=== PATIENT | female | born 1940 | race Caucasian/White ===

== ENCOUNTER 2018-11-16 20:03 | Inpatient (IN) | payer OTHER ==
[~2018-11-16] VITALS: Ht 157.5 cm; Wt 42.2 kg
[2018-11-16] MEDS ORDERED: SYNTHROID50 MCG PO (20:34)
[2018-11-16] MEDS ORDERED: PRILOSEC OTC20 MG PO (20:35)
[2018-11-16] MEDS ORDERED: MULTI VITAMIN1 EACH PO (20:37)
[2018-11-16] MEDS ORDERED: CALCIUM 500 +1 EAC5 PO (20:38)
[2018-11-16] MEDS ORDERED: VITAMIN D2000 UNIT PO (20:38)
[2018-11-16 20:45] VITALS: BP 156/59
[2018-11-17 02:16] LABS: URINE BILIRUBIN NEGATIVE (Negative); URINE BLOOD NEGATIVE (Negative); URINE CLARITY CLEAR; URINE COLOR YELLOW; URINE GLUCOSE-RANDOM* NEGATIVE (Negative); URINE KETONES 1+ (Negative); URINE LEUKOCYTES-REFLEX NEGATIVE (Negative); URINE NITRITE-REFLEX NEGATIVE (Negative); URINE PROTEIN (DIPSTICK) 1+ (Negative); URINE SPECIFIC GRAVITY 1.025 (1.005-1.035); URINE UROBILINOGEN 0.2 E.U./dl (0.2-1.0)
[2018-11-17 02:51] LABS: SQUAMOUS 0-3 Few /LPF (0-3); WBC CLUMPS Few (None Seen)
[2018-11-17 02:52] LABS: BACTERIA-REFLEX 1-9 Few /HPF (None Seen); CELLULAR CASTS 0-3 Few /LPF (None Seen); CRYSTALS None Seen /LPF (None Seen); HYALINE CASTS 0-3 Few /LPF (None Seen); URINE RBC 0-2 Rare /HPF (0-2); URINE WBC-REFLEX 6-15 Few /HPF (0-5)
--- NOTE | 2018-11-17 03:05 | NUR ---
PT ARRIVED VIA EMS FROM [facility] APPROX 1950, ADMISSION AND ASSESSMENT COMPLETED, CONSENT FORMS SIGNED. PT ARRIVED WITH NG TUBE IN LEFT NARE, PATENT, CONNECTED TO SUCTION AND IMMEDIATELY PULLING DARK YELLOW LIQUID AND NOTABLE AIR OUT. PT IS A&Ox4, SOFT-SPOKEN, UP WITH MINIMAL ASSIST, CONTINENT. C/O GENERALIZED ABD PAIN, ABD IS DISTENDED AND FIRM WITH HYPOACTIVE BOWEL SOUNDS, MILD NAUSEA. LAST FORMED BM ON WEDNESDAY, EPISODE OF DIARRHEA Wed. DENIES SOB. ALSO C/O CRAMPING/RESTLESS LEG PAIN RLE CHRONIC NECK/SHOULDER PAIN; PT REPORTS RELIEF WITH A MENTHOL RUB. HISTORY OF UNTREATED AFIB AND RIGHT MASTECTOMY. SKIN INTACT. IV FLUIDS STARTED. CONSULTS ORDERED FOR GI AND SURGERY. NO OTHER CONCERNS, WILL CONTINUE TO MONITOR.
[2018-11-17 04:15] VITALS: BP 133/59
[2018-11-17 05:09] LABS: HEMATOCRIT 42.8 % (37.0-47.0); HEMOGLOBIN 14.5 gm/dL (12.0-15.0); MCH 33.2 pg (26.0-34.0); MCHC 33.8 g/dL (28.0-37.0); MCV 98.4 fL (80.0-100.0); RBC 4.35 mil/uL (4.20-5.00); RDW 13.5 % (10.5-14.5); WBC 7.8 thou/uL (4.0-11.0)
[2018-11-17 05:25] LABS: CALCIUM 9.3 mg/dL (8.5-10.1); CREATININE 0.7 mg/dL (0.6-1.0); POTASSIUM 3.6 mmol/L (3.5-5.1)
[2018-11-17 07:50] VITALS: BP 111/62
--- NOTE | 2018-11-17 09:21 | H ---
[facility] [address] [place] [address] HISTORY AND PHYSICAL Name: HERBIE VILLALTA Room #: 424-P ADM IN M.R.#: [id number] Admission: 11/16/18 ������������������ Attend Phys: Digna Farfan Discharge: ������������������ Date of : 42 Report #: [id number] THIS REPORT FOR: //name// CC: FAM physician/PCP Digna Farfan DATE OF SERVICE: 11/16/2018 ATTENDING PHYSICIAN: Dr. Short. PRIMARY CARE PHYSICIAN: Dr. Preet Silva. CHIEF COMPLAINT: Abdominal pain, nausea, vomiting. HISTORY OF PRESENT ILLNESS: The patient is a 78-year-old female who was sent by [facility] due to small-bowel obstruction. She had presented there with a few days of generalized abdominal pain, which worsened earlier today, followed by few episodes of vomiting. She did have 2 loose stools today. She does have extensive history of abdominal surgeries and prior small-bowel obstruction 1 year ago at [facility] which resolved without any surgical intervention. She did have an NG tube placed at [facility] and was sent here since there was no surgeon available there. She states her pain has improved somewhat with the NG tube. She denies any fevers or chills. PAST MEDICAL HISTORY: GI bleed, hypothyroidism, breast cancer, atrial fibrillation. 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 ALLERGIES: ASPIRIN causes ULCERS and GI BLEEDING. HOME MEDICATIONS: Calcium and vitamin D 1 tab daily, omeprazole 20 mg daily p.r.n., levothyroxine 50 mcg daily, vitamin D3 2000 units daily, multivitamin daily. FAMILY HISTORY: Her father had hypertension. SOCIAL HISTORY: The patient denies any alcohol, tobacco or drug use. She lives at home with her spouse. She ambulates independently without any assistive devices. The [facility] records did say that she was a do not resuscitate. When asked about her code status, the patient states "I am not sure, you will have to ask my spouse and daughter who are my DPOAs" REVIEW OF SYSTEMS: Twelve-point review of systems was reviewed with the patient, otherwise negative unless stated in the HPI. [facility] [address] [place] [address] HISTORY AND PHYSICAL Name: HERBIE VILLALTA Room #: 424-P [facility] IN [facility].#: [id number] Admission: 11/16/18 ������������������ Attend Phys: Digna Farfan Discharge: ������������������ Date of : 42 Report #: [id number] PHYSICAL EXAMINATION: GENERAL: The patient is an alert female in no acute distress. VITAL SIGNS: Temperature 36.6, heart rate 94, respirations 18, blood pressure 156/59, oxygen 98% on room air. HEENT: PERRLA. Sclerae nonicteric. Oral mucosa is pink and moist. NECK: Supple, no JVD noted. CARDIAC: Heart rate is irregular but no murmurs, rubs or gallops. RESPIRATORY: Breath sounds are clear bilateral upper lobes, she is diminished on the left side. Breathing is nonlabored. ABDOMEN: Rounded more significantly on the lower portion, she has few rare bowel sounds. She is mildly tender across her lower abdomen, NG tube is draining light green thick drainage. VASCULAR: No edema noted. Pedal pulses are 2+. NEUROLOGIC: The patient is alert and oriented x 3. Speech is clear. She is moving all extremities equally. No focal neuro deficits noted. LABORATORY DATA AND DIAGNOSTICS: WBC 9.46, hemoglobin 15.3, platelets 246. Sodium 130, potassium 3.7, BUN 18, creatinine 0.8, glucose 115. LFTs are within normal limits. Lipase is 86. Bilirubin is normal, lactate 0.7. UA showed 1+ ketones, 2+ protein, trace leukocyte esterase, 4-8 wbc's, 1+ bacteria and positive squamous cells. CT of the abdomen showed findings suggesting a distal mechanical small-bowel obstruction very close to the ileocecal valve. There is also diffuse fluid present throughout the bowel loops such that abdominal plain films may not adequately demonstrate the obstruction. There is also a mild amount of ascites throughout the abdomen. The liver demonstrates mild lobulation, suggesting cirrhosis. There is moderate dilatation of the intrahepatic and extrahepatic biliary tree. The distal common bile duct is very tortuous and contains multiple calcified stones. The possibility of an acute distal common bile duct obstruction should be considered. There is also mild prominence of the pancreatic duct. 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 The contralateral left kidney demonstrates prominence in a 78-year-old female suggesting both initial hypertrophy and atrophy of age. ASSESSMENT AND PLAN: 1. Small-bowel obstruction. The patient will be kept n.p.o. with IV fluids, continue with pain and nausea control, to keep NG tube to low intermittent suction and await surgery evaluation. 2. Possible choledocholithiasis. This was noted on CT. If there is a stone, it does not appear to be obstructing as her liver enzymes and bilirubin are normal. We will consult GI for further assessment and she may need an MRCP to further evaluate. 3. Hypothyroidism. Check TSH level. Continue Synthroid. 4. Possible urinary tract infection. Urine may have been contaminated. We will repeat UA at this time, hold off on antibiotics until results are back on repeat urine. [address] [address] HISTORY AND PHYSICAL Name: HERBIE VILLALTA Room #: 424-P ADM IN M.R.#: [id number] Admission: 11/16/18 ������������������ Attend Phys: Digna Farfan Discharge: ������������������ Date of : 42 Report #: [id number] 5. Deep venous thrombosis prophylaxis, place sequential compression devices. We will continue to follow the patient closely throughout the hospitalization and make changes based on clinical status. ��������������������������������������������� <ELECTRONICALLY SIGNED> ���������������������������������������� By: GAURANG Torres ��������������������������������������������� 11/17/18 0921 0730 0839 GAURANG Torres /nt
--- NOTE | 2018-11-17 10:10 | NUR ---
Nutrition: Pt admitted for SBO, possible nonobstructing choledocholithiasis. Seen for BMI of 17=underweight. Currently NPO. Before admit appetite good with good intake, three meals a day. Current weight 92 lbs, UBW 85-87. GI consult pending for possible CBD stones, surgical consultation also pending. Will monitor for timely diet advance. Otherwise low nutrition risk.
--- NOTE | 2018-11-17 12:41 | NUR ---
ASSESSMENT-PT LIVES AT HOME WITH HER WHO WAS RECENTLY HOSPITALIZED BUT IS NOT AT HOME WITH A HH SERVICES FOLLOWING HIM. HE DRIVES, SHE DOES NOT. PT WALKS ON HER OWN AND DOES HER OWN ADLS. SHE HAS 2 CHILDREN AND HE HAS 1 CHILD. PT HAS NOT HAD ANY HH SERVICES. SHE DOES THE COOKING, CLEANING AND LAUNDRY. THEY Have BEEN ALMOST 41 YRS. PT VOICES NO CONCERNS RELATED TO DC. FOLLOWING TO ASSIST WITH DC PLANNING.
[2018-11-17 16:54] VITALS: BP 130/61
[2018-11-17 18:50] VITALS: BP 113/66
--- NOTE | 2018-11-17 19:32 | NUR ---
PT PROGRESSING SOME. ABD PAIN MUCH BETTER. STILL NO FLATUS. ABD SOFTER BUT DISTENDED. NG TO MARTIR. SURGICAL CONSULT W/ DR. LAWTON.
--- NOTE | 2018-11-18 01:56 | NUR ---
ASSUMED CARE AT 1900, ASSESSMENT COMPLETED. PT REPORTS ABD PAIN AND NAUSEA GREATLY IMPROVED, NO PRN MEDS GIVEN SO FAR THIS SHIFT. ABD STILL DISTENDED AND FIRM. GIVEN GLYCERIN SUPPOSITORY, CAUSING PT TO PASS GAS AND EVENTUALLY HAVE SMALL/MEDIUM AMOUNTS OF LOOSE YELLOW/BROWN STOOL. NG TUBE HAS SMALL AMOUNT OF THIN, DARK BROWN LIQUID OUTPUT OVERNIGHT. PT CALLS APPROPRIATELY FOR ASSISTANCE TO BSC. UTILIZING HEATING PAD FOR CHRONIC NECK/SHOULDER PAIN. IV FLUIDS INFUSING. NO OTHER CONCERNS, WILL CONTINUE TO MONITOR.
[2018-11-18 04:50] VITALS: BP 119/55
[2018-11-18 05:17] LABS: ALBUMIN 2.7 g/dL (3.4-5.0); CALCIUM 7.9 mg/dL (8.5-10.1); CREATININE 0.9 mg/dL (0.6-1.0); POTASSIUM 3.7 mmol/L (3.5-5.1); TOTAL BILIRUBIN 0.4 mg/dL (<0.1-1.0); TOTAL PROTEIN 5.2 g/dL (6.4-8.2)
[2018-11-18 05:54] LABS: MAGNESIUM 1.8 mg/dL (1.8-2.4)
[2018-11-18 06:09] LABS: PHOSPHORUS 3.4 mg/dL (2.5-4.9)
[2018-11-18 07:38] VITALS: BP 126/57
[2018-11-18 15:20] VITALS: BP 133/66
--- NOTE | 2018-11-18 19:18 | NUR ---
ASSUMED CARE OF PT AT 0700. ASSESSMENT CHARTED. A&O,X4. DENIES ABD PAIN AND NAUSEA. NGT IN PLACE LEFT NARE, LIS, BROWN OUTPUT NOTED. NPO. C/O CHRONIC NECK AND BACK PAIN, LIDOCAINE PATCH PLACED THIS AM AND HEATING PACK TO SITE. PT STANDBY ASSIST TO BATHROOM. SKIN INTACT. NEW ORDERS TO CLAMP NGT ~ 100ML BROWN OUTPUT NOTED. ICE CHIPS PROVIDED. ASKED DR. JIM TO ADVANCE DIET, MAINTAIN NPO WITH ICE CHIPS AT THIS TIME. NO OTHER CHANGE IN STATUS.
[2018-11-18 20:21] VITALS: BP 135/63
--- NOTE | 2018-11-19 01:18 | NUR ---
ASSUMED PT CARE 1899. PT ALERT AND ORIENTED. REASSESSMENT COMPLETE. VSS. IV DRESSING C/S/I, NO SIGNS OF INFILTRATION. BLE EDEMA. PT DENIES N/V, REPORTS PAIN IN SHOULDERS/BACK, DENIES ABD PAIN, SEE EMAR. NG TUBE IN PLACE AND CLAMPED. PT CALL LIGHT WITHIN REACH, WILL CONTINUE POC UNTIL EOS.
[2018-11-19 03:15] VITALS: BP 129/49
[2018-11-19 04:45] LABS: CALCIUM 6.7 mg/dL (8.5-10.1); CREATININE 0.7 mg/dL (0.6-1.0); MAGNESIUM 1.4 mg/dL (1.8-2.4); POTASSIUM 3.2 mmol/L (3.5-5.1)
[2018-11-19 08:24] VITALS: BP 133/57
[2018-11-19 16:05] VITALS: BP 139/62
--- NOTE | 2018-11-19 17:33 | NUR ---
Assessment completed.vss.Pt in and out of bed to bathroom with sba.Pt tolerated clear liq.Dr Tadeo here,order noted.Received call from mri that procedure won't be possible today but wednesday.Dr Tadeo notified.Dr Garcia later saw pt this afternoon and wanted ng pulled if no nausea.Will continue to monitor.
[2018-11-19 19:29] VITALS: BP 141/61
--- NOTE | 2018-11-20 02:40 | NUR ---
ASSSUMED PT CARE 1899. PT ALERT AND ORIENTED. RESSESSMENT COMPLETE. VSS. DRESSING C/D/I, NO SIGNS OF INFILTRATION. PT DENIES N/V, PT DENIES PAIN. PT CALL LIGHT WITHIN REACH. WILL CONTINUE POC UNTIL EOS.
[2018-11-20 03:53] VITALS: BP 144/61
[2018-11-20 07:27] VITALS: BP 137/61
[2018-11-20] MEDS ORDERED: COLACE100 MG PO (09:30)
[2018-11-20 09:37] VITALS: BP 137/61
--- NOTE | 2018-11-20 10:13 | NUR ---
DIS PT IS FOR DC TODAY, PT ON REGULAR DIET, TOLERATING WELL. PT HAD A MEDIUM BM THIS AM. IV DC'D. DC PACKET AND MEDSCRIPTS PROVIDED.
== END 2018-11-20 11:13 | disposition home or self-care (01) | DRG 389 ==
LOC: 4E 20:03
PROVIDERS: Nurse Practitioner; Nurse Practitioner Acute Care; Nurse Practitioner Family; ADMIT Hospitalist
PROC: 0D9670Z Drainage of Stomach with Drainage Device, Via Natural or Artificial Opening (ICD-10-PCS; principal; 2018-11-17)
DX: K56.609 Unspecified intestinal obstruction, unspecified as to partial versus complete obstruction (principal); N39.0 Urinary tract infection, site not specified; E46 Unspecified protein-calorie malnutrition; Z68.1 Body mass index [BMI] 19.9 or less, adult; K80.50 Calculus of bile duct without cholangitis or cholecystitis without obstruction; I48.91 Unspecified atrial fibrillation; E03.9 Hypothyroidism, unspecified; I25.10 Atherosclerotic heart disease of native coronary artery without angina pectoris; M81.0 Age-related osteoporosis without current pathological fracture; K21.9 Gastro-esophageal reflux disease without esophagitis; M19.90 Unspecified osteoarthritis, unspecified site; Z98.42 Cataract extraction status, left eye; Z98.41 Cataract extraction status, right eye; Z87.81 Personal history of (healed) traumatic fracture; Z85.3 Personal history of malignant neoplasm of breast; Z90.49 Acquired absence of other specified parts of digestive tract; Z90.710 Acquired absence of both cervix and uterus; Z90.11 Acquired absence of right breast and nipple; Z90.5 Acquired absence of kidney; Z79.899 Other long term (current) drug therapy; Z88.5 Allergy status to narcotic agent; Z88.6 Allergy status to analgesic agent; Z82.49 Family history of ischemic heart disease and other diseases of the circulatory system
CPT/HCPCS: 10783

== ENCOUNTER 2018-11-22 16:58 | Inpatient (IN) | payer OTHER ==
[~2018-11-22 16:58] MED LIST: CALCIUM 500 +1 EAC5 PO; COLACE100 MG PO; MULTI VITAMIN1 EACH PO; PRILOSEC OTC20 MG PO; SYNTHROID50 MCG PO; VITAMIN D2000 UNIT PO
--- NOTE | 2018-11-22 18:25 | NUR ---
PT ORIENTED TO ROOM AND UNIT. BED LOW AND LOCKED, SIDE RAILS UPX3, CALL LIGHT IN REACH. WILL CONTINUE TO ASSESS.
[2018-11-22 18:50] LABS: HEMATOCRIT 41.6 % (37.0-47.0); HEMOGLOBIN 13.8 gm/dL (12.0-15.0); MCH 32.9 pg (26.0-34.0); MCHC 33.2 g/dL (28.0-37.0); MCV 98.9 fL (80.0-100.0); RBC 4.21 mil/uL (4.20-5.00); RDW 13.7 % (10.5-14.5); WBC 5.9 thou/uL (4.0-11.0)
[2018-11-22 19:06] LABS: ALBUMIN 3.8 g/dL (3.4-5.0); TOTAL PROTEIN 7.2 g/dL (6.4-8.2)
[2018-11-22 19:08] LABS: CHOLESTEROL 182 mg/dL (<200); HDL CHOLESTEROL 75 mg/dL (>40); LDL CHOLESTEROL 82 mg/dL (<100); TC:HDL 2.4 Ratio (Not establshd); TRIGLYCERIDE 125 mg/dL (<150); VLDL 25 mg/dL (<40)
[2018-11-22 19:11] LABS: SERUM ASSESSMENT Clear
[2018-11-22 19:55] VITALS: BP 103/55; BP 147/83
[2018-11-22 20:25] LABS: CALCIUM 10.4 mg/dL (8.5-10.1); CREATININE 0.8 mg/dL (0.6-1.0); MAGNESIUM 1.7 mg/dL (1.8-2.4); POTASSIUM 4.1 mmol/L (3.5-5.1)
[2018-11-23 00:37] VITALS: BP 131/75
[2018-11-23 04:26] LABS: HEMOGLOBIN 12.3 gm/dL (12.0-15.0); MCH 33.5 pg (26.0-34.0); MCHC 34.3 g/dL (28.0-37.0); MCV 97.8 fL (80.0-100.0); RBC 3.68 mil/uL (4.20-5.00); RDW 13.4 % (10.5-14.5); WBC 5.1 thou/uL (4.0-11.0)
--- NOTE | 2018-11-23 04:28 | NUR ---
ASSUMED PT CARE AT SHIFT CHANGE WITH NO SIGN OF DISTRESS NOTED IN PT. PT IS ALERT AND ORIENTED. SCHEDULED MEDS ADMINISTERED TO PT. PT TOLERATED PO INTAKE. PT IS STABLE THROUGH OUT THE NIGHT. ELECTROLYSIS NEEDLE OPERATOR TO VISIT WITH PT IN THE AM, DENIES ANY FURTHER NEEDS AT THIS TIME.
[2018-11-23 04:50] VITALS: BP 131/72
[2018-11-23 04:50] LABS: CALCIUM 9.3 mg/dL (8.5-10.1); CREATININE 0.7 mg/dL (0.6-1.0); MAGNESIUM 1.4 mg/dL (1.8-2.4); POTASSIUM 3.5 mmol/L (3.5-5.1); TROPONIN-I 0.17 ng/mL (<0.06)
[2018-11-23 08:00] VITALS: BP 127/65
--- NOTE | 2018-11-23 10:26 | NUR ---
P.T. EVAL DEFERRED AT THIS TIME PER PT REQUEST. PT AND PT'S RN REPORT PT IS UP AD DEIRDRE IN ROOM WITHOUT DIFFICULTY. PT OBSERVED PERFORMING TXS AND AMB IN ROOM. PROVIDED WITH SECOND GOWN PER PT REQUEST TO ALLOW PT TO AMBULATE IN HALLS WITH NURSING APPROVAL/SUPERVISION. PT AND PT'S FAMILY VERBALIZED NO QUESTIONS AND AWARE THAT RN CAN RE-CONSULT P.T. IF PT EXPERIENCES A CHANGE IN FUNCTIONAL MOBILITY LEVEL.
--- NOTE | 2018-11-23 11:49 | NUR ---
ORDER REC'D FOR OT EVAL. OT BRIEFLY ASSESSED FUNCTIONAL MOBILITY W/WALK TO BATHROOM AND TOILET TRANSFER TO LOW SEAT. PATIENT USED GRAB BAR AND DID NOT NEED ASSIST W/LOWERING TO SEAT OR RISING. PATIENT IS ABLE TO DEMO LOWER BODY DRESSING W/O ASSIST AND STATES THAT SHE IS INDEPENDENT AT HOME AND HERE, TAKING HERSELF TO THE BATHROOM W/O INCIDENT. FAMILY IS PRESENT AND AGREES THAT PATIENT IS SAFE AND INDEPENDENT AND DOES NOT REQUIRE SKILLED OT. WILL DISCHARGE FROM OT SERVICES AFTER THIS SCREENING.
[2018-11-23 12:14] VITALS: BP 112/64
--- NOTE | 2018-11-23 15:17 | 2DMMODE ---
[facility] [address] [place] [address] 2 D/M-MODE ECHOCARDIOGRAM Name: HERBIE VILLALTA Room #: 204-P ADM IN .R.#: [id number] ������������� Admission: 11/22/18 ������������� Attend Phys: Adam Dennison, Discharge: ��� ������������� ��� Date of : 42 Date of Service: 11/23/18 1517 �� Report #: [id number] �������� ��������������������������������������������[id number] THIS REPORT FOR: //name// APPROVED REPORT Study performed: 11/23/2018 08:41:39 EXAM: Comprehensive 2D, Doppler, and color-flow Echocardiogram Patient Location: Bedside Room #: 204 Status: routine BSA: 1.38 HR: 101 bpm BP: 131/72 mmHg Rhythm: Atrial Fibrillation Other Information Study Quality: Good Indications Atrial Fibrillation Dyspnea 2D Dimensions RVDd: 29.25 mm IVSd: 8.01 (7-11mm) LVOT Diam: 21.28 (18-24mm) LVDd: 47.76 mm PWd: 7.64 (7-11mm) Ascending Ao: 30.85 (22-36mm) LVDs: 39.98 (25-40mm) Aortic Root: 34.75 mm IVC: 10.00 mm Volumes Left Atrial Volume (Systole) Single Plane 4CH: 86.75 mL Single Plane 2CH: 70.25 mL LA ESV Index: 61.00 mL/m2 Aortic Valve AoV Peak Brian.: 1.37 m/s AO Peak Gr.: 7.56 mmHg LVOT Max P.79 mmHg LVOT Max V: 0.83 m/s FABY Vmax: 2.16 cm2 AI Vmax: 3.40 m/s AI [place]: 1.48 m/s2 AI PHT: 667.51 ms [facility] [address] [place] [address] 2 D/M-MODE ECHOCARDIOGRAM Name: HERBIE VILLALTA Room #: 204-P [facility] IN .R.#: [id number] ������������� Admission: 11/22/18 ������������� Attend Phys: Adam Dennison, Discharge: ��� ������������� ��� Date of : 42 Date of Service: 11/23/18 1517 �� Report #: [id number] �������� ��������������������������������������������[id number] Pulmonary Valve PV Peak Brian.: 1.02 m/s PV Peak Gr.: 4.20 mmHg Tricuspid Valve TR Peak Brian.: 2.76 m/s TR Peak Gr.: 30.44 mmHg PA Pressure: 35.00 mmHg Left Ventricle The left ventricle is normal size. There is normal left ventricular wall thickness. Left ventricular systolic function is mildly decreased. LVEF is 40-45%. This study is not technically sufficient to allow evaluation of the LV diastolic function due to atrial fibrillation. Right Ventricle The right ventricle is normal size. The right ventricular systolic function is normal. Atria Left atrium is dilated. Right atrium is dilated. Aortic Valve The aortic valve is normal in structure. Mild aortic regurgitation. There is no aortic valvular stenosis. Mitral Valve The mitral valve is normal in structure. Mild mitral regurgitation. No evidence of mitral valve stenosis. Tricuspid Valve The tricuspid valve is normal in structure. There is mild tricuspid regurgitation. Estimated PAP 35 mmHg. There is mild pulmonary hypertension. Pulmonic Valve The pulmonary valve is normal in structure. Mild pulmonic regurgitation. Great Vessels The aortic root is normal in size. IVC is normal in size and collapses >50% with inspiration. Pericardium Mildl pericardial effusion. [facility] [address] [place] [address] 2 D/M-MODE ECHOCARDIOGRAM Name: HERBIE VILLALTA Room #: 204-P [facility] IN M.R.#: [id number] ������������� Admission: 11/22/18 ������������� Attend Phys: Adam Dennison, Discharge: ��� ������������� ��� Date of : 42 Date of Service: 11/23/18 1517 �� Report #: [id number] �������� ��������������������������������������������[id number] <Conclusion> The left ventricle is normal size. Left ventricular systolic function is mildly decreased. LVEF is 40-45%. This study is not technically sufficient to allow evaluation of the LV diastolic function due to atrial fibrillation. The right ventricle is normal size. Left atrium is dilated. Right atrium is dilated. Mild aortic regurgitation. Mild mitral regurgitation. There is mild tricuspid regurgitation. Estimated PAP 35 mmHg. There is mild pulmonary hypertension. The aortic root is normal in size. Mildl pericardial effusion. ��������������������������������������������� <ELECTRONICALLY SIGNED> ���������������������������������������� By: Juan C Berg MD, FAC ��������������������������������������������� 11/23/18 1517 151 16 Juan C Berg MD, FACC /INF
[2018-11-23 16:00] VITALS: BP 100/51
--- NOTE | 2018-11-23 16:34 | NUR ---
ASSUMED CARE AT 0700. PT HAS CHEST XRAY AND ECHO THIS AM. PT WAS EVAULATED BY P.T AND O.T THIS AFTERNOON AND IT WAS DETERMINED PT DID NOT REQUIRE SERVICES FROM EITHER P.T OR O.T. PT HAS BEEN WALKING HALLS THIS SHIFT. PT UP AD DEIRDRE AND STEADY ON FEET. PT STATES HER SWELLING HAS GONE DOWN SINCE ADMISSION AND THAT SHE IS NO LONGER SOA. PT IS DETERMINED TO BE DISCHARGED HOME TOMORROW.
[2018-11-23 20:15] VITALS: BP 96/60
[2018-11-24 03:56] LABS: CALCIUM 9.7 mg/dL (8.5-10.1); CREATININE 0.9 mg/dL (0.6-1.0); MAGNESIUM 1.5 mg/dL (1.8-2.4); POTASSIUM 4.3 mmol/L (3.5-5.1)
[2018-11-24 04:45] VITALS: BP 120/69
--- NOTE | 2018-11-24 05:11 | NUR ---
ASSUMED PT CARE AT 1900 WITH NO SIGN OF DISTRESS NOTED, PT IS ALERT AND ORIENTED. NO SIGN OF DISTRESS NOTED IN PT. DENIES ANY NEEDS AT THIS TIME. PT IS STABLE AND VITAL SIGNS STABLE. SCHEDULED MEDS ADMINISTERED TO PT. PT TOLERATED PO INTAKE. CONTINUE NURSING POC
[2018-11-24 08:00] VITALS: BP 128/57
--- NOTE | 2018-11-24 09:28 | EKG ---
[address] [address] ELECTROCARDIOGRAM REPORT Name: HERBIE VILLALTA Room #: 204-P ADM IN M.R.#: [id number] ������������������ Admission: 11/22/18 ������������������ Attend Phys: Adam Dennison MD Discharge: ������������������ Date of : 42 Report #: [id number] ����������������������������������������������������������������� [id number] THIS REPORT FOR: //name// [facility] Test Date: 2018-11-22 Test Time: 20:06:32 Pat Name: HERBIE VILLALTA Department: Room: 204 P Gender: F Emergency Response Officer: Kalee MAGUIRE : 1940 Requested By: Adam Dennison Order Number: [id number] MD: Josse Brian Measurements Intervals [place] Rate: 101 P: [place]: QRS: 3 QRSD: 118 T: 111 QT: 346 QTc: 449 Interpretive Statements Atrial fibrillation Multiple ventricular premature complexes Incomplete left bundle branch block No previous ECG available for comparison Electronically Signed On 11-24-2018 9:28:17 CDT by Josse Brian [email or web address] ��������������������������������������������� <ELECTRONICALLY SIGNED> ���������������������������������������� By: Josse Brian MD, [facility] ��������������������������������������������� 11/24/18 0928 2006 05 Josse Brian MD, FAC /EPI
--- NOTE | 2018-11-24 09:32 | EKG ---
[address] [address] ELECTROCARDIOGRAM REPORT Name: HERBIE VILLALTA Room #: 204-P ADM IN M.R.#: [id number] ������������������ Admission: 11/22/18 ������������������ Attend Phys: Adam Dennison MD Discharge: ������������������ Date of : 42 Report #: [id number] ����������������������������������������������������������������� [id number] THIS REPORT FOR: //name// [facility] Test Date: 2018-11-23 Test Time: 07:11:51 Pat Name: HERBIE VILLALTA Department: Room: 204 P Gender: F Maintenance Services Dispatcher: : 1940 Requested By: Juan C Berg Order Number: [id number] MD: Josse Brian Measurements Intervals [place] Rate: 101 P: ID: QRS: 14 QRSD: 122 T: 143 QT: 366 QTc: 475 Interpretive Statements Atrial fibrillation Ventricular premature complex Left bundle branch block No previous ECG available for comparison Electronically Signed On 11-24-2018 9:32:15 CDT by Josse Brian [email or web address] ��������������������������������������������� <ELECTRONICALLY SIGNED> ���������������������������������������� By: Josse Brian MD, [facility] ��������������������������������������������� 11/24/18 0932 0711 0 Josse Brian MD, FACC /EPI
--- NOTE | 2018-11-24 09:51 | EKG ---
[address] [address] ELECTROCARDIOGRAM REPORT Name: HERBIE VILLALTA Room #: 204-P ADM IN M.R.#: [id number] ������������������ Admission: 11/22/18 ������������������ Attend Phys: Adam Dennison MD Discharge: ������������������ Date of : 42 Report #: [id number] ����������������������������������������������������������������� [id number] THIS REPORT FOR: //name// [facility] Test Date: 2018-11-24 Test Time: 07:16:56 Pat Name: HERBIE VILLALTA Department: Room: 204 Gender: F Cabinetmaker Maintenance: : 1940 Requested By: Rodolfo Short Order Number: [id number] MD: Josse Brian Measurements Intervals [place] Rate: 75 P: [place]: QRS: -13 QRSD: 126 T: 98 QT: 420 QTc: 470 Interpretive Statements Atrial fibrillation Left bundle branch block No previous ECG available for comparison Electronically Signed On 11-24-2018 9:51:38 CDT by Josse Brian [email or web address] ��������������������������������������������� <ELECTRONICALLY SIGNED> ���������������������������������������� By: Josse Brian MD, [facility] ��������������������������������������������� 11/24/18 0951 0716 5 Josse Brian MD, FACC /EPI
[2018-11-24] MEDS ORDERED: MAG6464 MG PO (10:34)
[2018-11-24] MEDS ORDERED: METOPROLOL SUCC25 M1 PO (10:34)
[2018-11-24] MEDS ORDERED: MIRALAX17 GM PO (10:34)
[2018-11-24 11:41] VITALS: BP 123/57
[2018-11-24 11:54] VITALS: BP 123/57
[2018-11-24 11:55] VITALS: BP 123/57
--- NOTE | 2018-11-24 11:55 | NUR ---
Flocculator Operator visited with pt, her spouse and son at bedside. Pt dcing home today. Pt denies any dc needs or concerns and does not anticipate being home bound. HH referral declined. Pt has good support and will f/u with her PCP. No cm interventions indicated.
--- NOTE | 2018-11-24 12:33 | NUR ---
assumed care of patient at 0700, pt denies any pain or discomfort. sr on the monitor and has been afibrile. vss. orders rcvd to d/c pt to home. d/c instructions given to patient, all questions answered. and son here to take pt home.
== END 2018-11-24 12:15 | disposition home or self-care (01) | DRG 308 ==
LOC: 3N 16:58 → 2N 18:09
PROVIDERS: ADMIT Internal Medicine
DX: I48.91 Unspecified atrial fibrillation (principal); I50.33 Acute on chronic diastolic (congestive) heart failure; I11.0 Hypertensive heart disease with heart failure; E03.9 Hypothyroidism, unspecified; M19.90 Unspecified osteoarthritis, unspecified site; K21.9 Gastro-esophageal reflux disease without esophagitis; E78.5 Hyperlipidemia, unspecified; E83.42 Hypomagnesemia; M81.0 Age-related osteoporosis without current pathological fracture; E87.70 Fluid overload, unspecified; I48.2 Chronic atrial fibrillation; Z88.6 Allergy status to analgesic agent; Z85.3 Personal history of malignant neoplasm of breast; Z90.11 Acquired absence of right breast and nipple; Z90.710 Acquired absence of both cervix and uterus; Z90.49 Acquired absence of other specified parts of digestive tract; Z98.42 Cataract extraction status, left eye; Z98.41 Cataract extraction status, right eye; Z87.81 Personal history of (healed) traumatic fracture; Z90.5 Acquired absence of kidney; Z90.10 Acquired absence of unspecified breast and nipple; Z79.01 Long term (current) use of anticoagulants; Z79.899 Other long term (current) drug therapy
CPT/HCPCS: 10081

== ENCOUNTER 2020-01-05 12:04 | Inpatient (IN) | payer OTHER | END 2020-01-08 13:19 | disposition home or self-care (01) | DRG 389 | LOC: 4W 12:04 | PROVIDERS: ADMIT Hospitalist | DX: K56.609 Unspecified intestinal obstruction, unspecified as to partial versus complete obstruction (principal); I50.30 Unspecified diastolic (congestive) heart failure; E46 Unspecified protein-calorie malnutrition; Z68.1 Body mass index [BMI] 19.9 or less, adult; I48.91 Unspecified atrial fibrillation; I11.0 Hypertensive heart disease with heart failure; E03.9 Hypothyroidism, unspecified; K21.9 Gastro-esophageal reflux disease without esophagitis; H54.8 Legal blindness, as defined in USA; F32.9 Major depressive disorder, single episode, unspecified; G47.00 Insomnia, unspecified; E16.2 Hypoglycemia, unspecified; K59.00 Constipation, unspecified; Z80.3 Family history of malignant neoplasm of breast; Z88.8 Allergy status to other drugs, medicaments and biological substances; Z90.89 Acquired absence of other organs; Z90.49 Acquired absence of other specified parts of digestive tract; Z90.710 Acquired absence of both cervix and uterus; Z90.10 Acquired absence of unspecified breast and nipple; Z90.5 Acquired absence of kidney; Z79.01 Long term (current) use of anticoagulants; I25.2 Old myocardial infarction; Z79.899 Other long term (current) drug therapy ==

== ENCOUNTER → 2020-08-14 | Outpatient (CLI) | payer OTHER ==
[~2020-08-14] MED LIST changes: +MAG6464 MG PO; +METOPROLOL SUCC25 M1 PO; +MIRALAX17 GM PO
== END ==
LOC: SJCVC 14:28
PROVIDERS: ATTEND Internal Medicine
DX: I48.21 Permanent atrial fibrillation (principal); R94.31 Abnormal electrocardiogram [ECG] [EKG]; I44.7 Left bundle-branch block, unspecified; I50.22 Chronic systolic (congestive) heart failure; E78.5 Hyperlipidemia, unspecified; K21.9 Gastro-esophageal reflux disease without esophagitis; E03.9 Hypothyroidism, unspecified; Z79.899 Other long term (current) drug therapy; Z87.891 Personal history of nicotine dependence; Z87.74 Personal history of (corrected) congenital malformations of heart and circulatory system

== ENCOUNTER → 2021-06-24 | Outpatient (CLI) | payer OTHER | LOC: SJCVC 11:46 | PROVIDERS: ATTEND Internal Medicine | DX: I48.21 Permanent atrial fibrillation (principal); I50.22 Chronic systolic (congestive) heart failure; E78.5 Hyperlipidemia, unspecified; K21.9 Gastro-esophageal reflux disease without esophagitis; R94.31 Abnormal electrocardiogram [ECG] [EKG]; I44.7 Left bundle-branch block, unspecified; E03.9 Hypothyroidism, unspecified; Z79.899 Other long term (current) drug therapy; Z88.6 Allergy status to analgesic agent; Z87.74 Personal history of (corrected) congenital malformations of heart and circulatory system; Z87.891 Personal history of nicotine dependence; Z82.49 Family history of ischemic heart disease and other diseases of the circulatory system ==